=== PATIENT | female | born 1975 | race Caucasian/White ===

== ENCOUNTER 2016-05-22 19:39 | Emergency (ER) | payer BC | END 2016-05-22 23:30 | disposition home or self-care (01) | LOC: ER 19:39 | DX: M54.2 Cervicalgia (principal); F17.210 Nicotine dependence, cigarettes, uncomplicated; Z88.0 Allergy status to penicillin; Z88.5 Allergy status to narcotic agent | CPT/HCPCS: 93005; 96372; 99284; J1170; J2930 ==